=== PATIENT | female | born 1990 | race Caucasian/White ===

== ENCOUNTER 2017-09-27 13:04 | Emergency (ER) | payer BC, OTHER ==
[~2017-09-27] VITALS: Ht 160 cm; Wt 79.9 kg
[~2017-09-27 13:04] MED LIST: DOCUSATE SODIU100 MG PO; ENDOCET 5-3251 EACH PO; FOLIC ACID0.8 MG PO; IBUPROFEN800 MG PO; PRENATAL TABLE1 EAC3 PO; PROCTOFOAM-HC10 GM PR; VALTREX50 MG/ML PO
[2017-09-27 15:52] LABS: HEMATOCRIT 37.3 % (36.0-46.0); HEMOGLOBIN 12.6 G/DL (11.9-15.5); MCH 28.4 PG (29.0-34.0); MCHC 33.8 G/DL (30.0-36.0); MCV 84.2 FL (83-99); PLATELET COUNT 187 K/uL (156-360); RBC DIS.WIDTH-CV 14.2 % (11.8-14.6); RBC DIS.WIDTH-SD 43.7 % (39-53); RED BLOOD COUNT 4.43 M/uL (3.80-5.20); WHITE BLOOD COUNT 2.7 K/uL (4.1-10.2)
[2017-09-27 16:00] LABS: CHLORIDE 105 mEq/L (99-109); POTASSIUM 3.6 mEq/L (3.7-5.4); SODIUM 135 mEq/L (136-147)
[2017-09-27 16:02] LABS: GLUCOSE 104 mg/dL (70-99)
[2017-09-27 16:06] LABS: CREATININE 0.7 mg/dL (0.6-1.3); GFR ESTIMATE (CALCULATED) > 59 mL/min/
[2017-09-27 16:07] LABS: UREA NITROGEN (BUN) 6 mg/dL (9-23)
[2017-09-27 19:45] LABS: APPEARANCE SL.HAZY ((CLEAR)); BILIRUBIN NEGATIVE; BLOOD NEGATIVE; COLOR AMBER ((YELLOW)); GLUCOSE (STRIP) NEGATIVE; KETONES 80; LEUKOCYTES NEGATIVE; NITRITE NEGATIVE; PROTEIN (STRIP) 100
[2017-09-27 20:07] LABS: RED BLOOD CELLS 0-5 /HPF (0-5); WHITE BLOOD CELLS 0-5 /HPF (0-5)
[2017-09-27 20:08] LABS: BACTERIA NONE SEEN /HPF; EPITHELIAL CELLS 1+ /HPF; MUCUS 4+ /LPF; UCUL ADDED? NO
[2017-09-27] MEDS ORDERED: TAMIFLU75 MG PO (20:26)
[2017-09-27] MEDS ORDERED: ZOFRAN ODT4 MG PO (20:26)
[2017-09-27 20:44] VITALS: BP 104/55
== END 2017-09-27 21:05 | disposition home or self-care (01) ==
LOC: EME 13:04
PROVIDERS: Physician Assistant Medical
DX: O99.511 Diseases of the respiratory system complicating pregnancy, first trimester (principal); J10.1 Influenza due to other identified influenza virus with other respiratory manifestations; O21.9 Vomiting of pregnancy, unspecified; R19.7 Diarrhea, unspecified; Z3A.12 12 weeks gestation of pregnancy
CPT/HCPCS: 80048; 81003; 84702; 85027; 87502; J2405; J7030